=== PATIENT | female | born 1965 | race Caucasian/White ===

== ENCOUNTER 2018-12-04 21:45 | Emergency (ER) | payer SELFPAY, OTHER ==
[2018-12-04] MEDS: ACETAMINOPHEN 500 MG TAB PO (23:10)
== END 2018-12-05 01:10 | disposition home or self-care (01) ==
LOC: FTE 21:45
DX: S06.0X9A Concussion with loss of consciousness of unspecified duration, initial encounter (principal); S00.83XA Contusion of other part of head, initial encounter; Y04.2XXA Assault by strike against or bumped into by another person, initial encounter
CPT/HCPCS: 70450; 71100; 72125; 99284-25